=== PATIENT | female | born 1980 | race Caucasian/White ===

== ENCOUNTER 2017-03-29 11:38 | Emergency (ER) | payer SELFPAY ==
[2017-03-29 11:42] VITALS: BP 118/72
[2017-03-29] MEDS ORDERED: NORMAL SALINE 1000 ML 1,000 ML IV ONE (12:42)
[2017-03-29] MEDS ORDERED: KETOROLAC TROMETHAMINE INJ/PF 30 MG/1 ML SDV IV ONE (12:43)
[2017-03-29] MEDS ORDERED: DIPHENHYDRAMINE HCL 50 MG/ML VIAL IV ONE (12:43)
[2017-03-29] MEDS ORDERED: METOCLOPRAMIDE HCL INJ/PF 10 MG/2 ML SDV IV ONE (12:43)
--- NOTE | 2017-03-29 14:02 | ER Document Report ---
ED Headache - General Chief Complaint: Headache Stated Complaint: HEADACHE Time Seen by Provider: 03/29/17 12:34 Notes: 36 yo female c/o "migraine" headache x 3 days. typical headache for pt. pulsatile. + nausea, no vomiting. no fever. no neck pain. usually takes Maxalt, but has not had any meds due to insurance TRAVEL OUTSIDE OF THE [place] IN LAST 30 DAYS: No - HPI Patient complains to provider of: "Migraine" Patient reports: Hx chronic headaches Onset: Other - 3 days Onset was: Gradual Timing: Still present Quality of pain: Throbbing Preceding symptoms: Typical of prior aura(s) Associated symptoms: Nausea/vomiting. denies: Fever, Neck pain, Stiff neck Exacerbated by: Light, Noise, Movement Similar symptoms previously: Yes Recently seen / treated by doctor: No - Related Data Allergies/Adverse Reactions: amoxicillin [Amoxicillin] Allergy (Verified 03/29/17 11:40) Penicillins Allergy (Verified 03/29/17 11:40) Past Medical History - General Information source: Patient - Social History Smoking Status: Current Every Day Smoker Frequency of alcohol use: None Drug Abuse: None Lives with: Family Family History: Reviewed & Not Pertinent Patient has suicidal ideation: No Patient has homicidal ideation: No Neurological Medical History: Reports: Hx Migraine Renal/ Medical History: Denies: Hx Peritoneal Dialysis Musculoskeltal Medical History: Reports Hx Arthritis - rheumatoid arthritis - new dx, Reports Hx Musculoskeletal Deformity, Reports Hx Musculoskeletal Trauma Skin Medical History: Reports Hx MRSA Past Surgical History: Reports: Hx Section - x3, Hx Tonsillectomy - 2005 - Immunizations Hx Diphtheria, Pertussis, Tetanus Vaccination: Yes - 2005 Review of Systems - Review of Systems Constitutional: No symptoms reported EENT: No symptoms reported Cardiovascular: No symptoms reported Respiratory: No symptoms reported Gastrointestinal: No symptoms reported Genitourinary: No symptoms reported Female Genitourinary: No symptoms reported Musculoskeletal: No symptoms reported Skin: No symptoms reported Hematologic/Lymphatic: No symptoms reported Neurological/Psychological: No symptoms reported Physical Exam - Vital signs Vitals: Temp Pulse Resp BP Pulse Ox 98.0 F 90 12 118/72 100 03/29/17 11:41 03/29/17 11:41 03/29/17 11:41 03/29/17 11:41 03/29/17 11:41 Interpretation: Normal - General General appearance: Appears well, Alert - HEENT Head: Normocephalic, Atraumatic Eyes: Normal Pupils: PERRL - Respiratory Respiratory status: No respiratory distress Chest status: Nontender Breath sounds: Normal Chest palpation: Normal - Cardiovascular Rhythm: Regular Heart sounds: Normal auscultation Murmur: No - Abdominal Inspection: Normal Distension: No distension Bowel sounds: Normal Tenderness: Nontender Organomegaly: No organomegaly - Back Back: Normal, Nontender - Extremities General upper extremity: Normal inspection, Nontender, Normal color, Normal ROM , Normal temperature General lower extremity: Normal inspection, Nontender, Normal color, Normal ROM , Normal temperature, Normal weight bearing. No: Leah's sign - Neurological Neuro grossly intact: Yes Cognition: Normal Orientation: AAOx4 Felipe Coma Scale Eye Opening: Spontaneous Felipe Coma Scale Verbal: Oriented Jones Coma Scale Motor: Obeys Commands Felipe Coma Scale Total: 15 Speech: Normal Motor strength normal: LUE, RUE, LLE, RLE Sensory: Normal - Psychological Associated symptoms: Normal affect, Normal mood - Skin Skin Temperature: Warm Skin Moisture: Dry Skin Color: Normal Course - Re-evaluation Re-evalutation: 03/29/17 14:12 pt improved after meds. low risk for acute glaucoma, temporal ateritis, meningitis, stroke, thus I consider discharge home reasonable. pt is neurologically intact. home care, pcm follow up and ED return precautions discussed with patient. pt agreeable and stable for discharge - Vital Signs Vital signs: Temp Pulse Resp BP Pulse Ox 98.0 F 90 12 118/72 100 03/29/17 11:41 03/29/17 11:41 03/29/17 11:41 03/29/17 11:41 03/29/17 11:41 Discharge - Discharge Clinical Impression: Headache Qualifiers: Headache type: unspecified Headache chronicity pattern: acute headache Intractability: not intractable Qualified Code(s): R51 - Headache Condition: Stable Disposition: HOME, SELF-CARE Instructions: Antinausea Medication ([facility]), Use of Diphenhydramine, Headache ( [facility]), Reglan ([facility]), Toradol Injection ([facility]) Additional Instructions: take 1 phenergan +2 benadryl if headache returns rest and hydrate follow up with your primary care for further evaluation and treatment Prescriptions: Promethazine HCl [Phenergan 25 mg Tablet] 25 mg PO Q6H PRN #15 tablet PRN Reason: Forms: Return to Work
== END 2017-03-29 14:10 | disposition left against medical advice (07) ==
LOC: ER 11:38
DX: R51 Headache (principal); R11.0 Nausea; F17.200 Nicotine dependence, unspecified, uncomplicated; Z88.0 Allergy status to penicillin; Z86.14 Personal history of Methicillin resistant Staphylococcus aureus infection
CPT/HCPCS: 99283; 96361; 96374; 96375; J1200; J1885; J2765; J7030

== ENCOUNTER 2017-04-09 17:28 | Emergency (ER) | payer SELFPAY ==
[2017-04-09 17:34] VITALS: BP 141/85
[2017-04-09] MEDS ORDERED: SULFAMETHOXAZOLE/TRIMETHOPRIM 800-160 MG TABLET PO ONE (18:05)
[2017-04-09] MEDS ORDERED: CEPHALEXIN 500 MG CAPSULE PO ONE (18:05)
[2017-04-09] MEDS ORDERED: IBUPROFEN 800 MG TABLET PO ONE (18:05)
--- NOTE | 2017-04-09 18:11 | ER Document Report ---
ED Extremity Problem, Lower - General Chief Complaint: Toe Injury Stated Complaint: TOE PAIN Time Seen by Provider: 04/09/17 17:58 Mode of Arrival: Medic Information source: Patient Notes: 36-year-old female presented to ED for complaint of pain in both big toes for the last 7 days. She denies any injuries or trauma. She states she does a lot of walking today and that she has pain in both toes. She states she thinks she has an ingrown toenail on both toes. She states she has had them in the past. TRAVEL OUTSIDE OF THE [place] IN LAST 30 DAYS: No - HPI Patient complains to provider of: Pain, Swelling Location: Great Toe - Bilateral Occurred: Last week Where: Other - States she done a walk lateral walking today but the pain is been for a week Onset/Duration: Persistent Quality of pain: Sharp, Throbbing Severity: Severe Pain Level: 5 Context: Other - Minimal ingrown toenails both great toes. No pus noted at this time patient states she has been removing the pus herself Recent injury: No Associated symptoms: Painful ambulation Exacerbated by: Movement, Walking Relieved by: Nothing - Related Data Allergies/Adverse Reactions: amoxicillin [Amoxicillin] Allergy (Verified 04/09/17 17:32) Penicillins Allergy (Verified 04/09/17 17:32) Past Medical History - General Information source: Patient - Social History Smoking Status: Current Every Day Smoker Cigarette use (# per day): Yes - 4-6 cigarettes a day Chew tobacco use (# tins/day): No Smoking Education Provided: Yes - 3 minutes Frequency of alcohol use: None Drug Abuse: None Lives with: Family Family History: Malignancy, Thyroid Disfunction. denies: Arthritis, CAD, COPD, CVA, DM, Hyperlipidemia, Hypertension Patient has suicidal ideation: No Patient has homicidal ideation: No - Past Medical History Cardiac Medical History: Reports: None Pulmonary Medical History: Reports: None EENT Medical History: Reports: None Neurological Medical History: Reports: Hx Migraine Endocrine Medical History: Reports: None Renal/ Medical History: Reports: None Malignancy Medical History: Reports: None GI Medical History: Reports: None Musculoskeltal Medical History: Reports Hx Arthritis - rheumatoid arthritis - new dx, Reports Hx Musculoskeletal Deformity, Reports Hx Musculoskeletal Trauma Skin Medical History: Reports Hx Cellulitis, Reports Hx MRSA Psychiatric Medical History: Reports: None Traumatic Medical History: Reports: None Past Surgical History: Reports: Hx Section - x3, Hx Tonsillectomy - 2005, Other - Facial surgery for MRSA 2 - Immunizations Hx Diphtheria, Pertussis, Tetanus Vaccination: Yes - 2006 Review of Systems - Review of Systems Constitutional: No symptoms reported EENT: No symptoms reported Cardiovascular: No symptoms reported Respiratory: No symptoms reported Gastrointestinal: No symptoms reported Genitourinary: No symptoms reported Female Genitourinary: No symptoms reported Musculoskeletal: No symptoms reported Skin: Other - Painful redness around the toenails to both great toe nails. No paronychia noted. No drainage noted. Hematologic/Lymphatic: No symptoms reported Neurological/Psychological: No symptoms reported Physical Exam - Vital signs Vitals: Temp Pulse Resp BP Pulse Ox 97.9 F 97 18 141/85 H 100 04/09/17 17:34 04/09/17 17:34 04/09/17 17:34 04/09/17 17:34 04/09/17 17:34 Interpretation: Normal - General General appearance: Appears well, Alert - HEENT Head: Normocephalic, Atraumatic Eyes: Normal Pupils: PERRL - Respiratory Respiratory status: No respiratory distress Chest status: Nontender Breath sounds: Normal Chest palpation: Normal - Cardiovascular Rhythm: Regular Heart sounds: Normal auscultation Murmur: No - Abdominal Inspection: Normal Distension: No distension Bowel sounds: Normal Tenderness: Nontender Organomegaly: No organomegaly - Back Back: Normal, Nontender - Extremities General upper extremity: Normal inspection, Nontender, Normal color, Normal ROM , Normal temperature General lower extremity: Normal inspection, Nontender, Normal color, Normal ROM , Normal temperature, Normal weight bearing. No: Leah's sign - Neurological Neuro grossly intact: Yes Cognition: Normal Orientation: AAOx4 Felipe Coma Scale Eye Opening: Spontaneous Felipe Coma Scale Verbal: Oriented [place] Coma Scale Motor: Obeys Commands Felipe Coma Scale Total: 15 Speech: Normal Motor strength normal: LUE, RUE, LLE, RLE Sensory: Normal - Psychological Associated symptoms: Normal affect, Normal mood - Skin Skin Temperature: Warm Skin Moisture: Dry Skin Color: Normal Location of irregularity: Extremities - Cellulitis to bilateral great toes around the nails. No paronychia noted. No drainage no pus. Irregularity with: Swelling, Tenderness Course - Re-evaluation Re-evalutation: 12/24/17 18:40 Patient treated in the a.m. emergency room with Bactrim and Keflex and ibuprofen. Patient was sent home with prescriptions for Keflex and Bactrim. Patient to follow-up with a fitness instructor. - Vital Signs Vital signs: Temp Pulse Resp BP Pulse Ox 97.9 F 97 18 141/85 H 100 04/09/17 17:34 04/09/17 17:34 04/09/17 17:34 04/09/17 17:34 04/09/17 17:34 Discharge - Discharge Clinical Impression: ingrown toenails bilateral great toe HTN (hypertension) Qualifiers: Hypertension type: unspecified Qualified Code(s): I10 - Essential (primary) hypertension Condition: Stable Disposition: HOME, SELF-CARE Additional Instructions: Ingrown Nail You have an ingrown nail. An ingrown nail develops when the tissues near the nail are pushed up over the nail. Irritation develops and infection follows. An ingrown nail can result from poorly fitting shoes, improper cutting of the nail, or minor injuries. Once the tissues at the edge of the nail swell, the problem can become chronic. Emergency treatment is usually removal of the portion of the nail that has become ingrown. This is followed by hot soaks three to four times a day. Antibiotics may be necessary if infection is present. After the toe heals, make certain there is no pressure on the area, either from shoes or another toe. Trim the toenails straight across, not curved back into the corners. If ingrown nails recur, an operation to remove excess tissue near the nail, or narrowing of the nail, may be necessary. Call the doctor or return if swelling increases, or red streaks, swelling, or swollen glands are found. SOAP CLEANSING: Gently wash the wound daily using a mild soap (like Ivory, Phisoderm, Neutrogena). Use warm water, rubbing gently until all debris, ooze, and crusting have been washed from the wound. Allow to dry briefly (about 10 minutes) after cleaning. Repeat this cleansing at least three times a day for the first two days and then once or twice a day. ANTIBIOTIC OINTMENT PROTECTION: Your wounds are such that dressing them is not practical or optional. After cleansing, you should apply a thin coating of antibiotic ointment ( Bacitracin, not Neosporin) to the wounds at least three times daily. This lessens infection risk, and may decrease the amount of scarring. Use a q-tip or dull butter knife, not your finger, to apply this ointment. Any debris or ooze which builds up in the ointment should be gently rubbed off with a sterile gauze pad. Harder crusting may need to be gently scrubbed off with a clean wash cloth with soap and warm water, perhaps applying a warm, wet wash cloth to the wound for ten minutes first. Development of redness, severe itching, or blistering may mean allergy to the ointment. See the doctor. CEPHALEXIN: The antibiotic you've been prescribed is a member of the cephalosporin class. This type of antibiotic covers a wide variety of infections, including those of the skin, lungs, and urinary tract. It's useful for staph infections. This antibiotic is slightly similar to the penicillin family. In rare cases , a person who is allergic to penicillin will also be allergic to this medication. If you have had a severe allergic reaction to penicillin, and have not taken this antibiotic since that time, notify your doctor. Antibiotics which cover many germs ("broad spectrum" antibiotics) are more likely to cause diarrhea or "yeast" infections. Women prone to vaginal yeast problems may suffer an attack after taking this antibiotic. In infants, oral thrush (white spots "stuck" on the cheek) or yeast diaper rash may result. See your doctor if these problems occur. Call at once if you develop itching, hives , shortness of breath, or lightheadedness. TRIMETHOPRIM-SULFA: You have been given a prescription for trimethoprim-sulfa (TMS, Septra, Bactrim). This is a combination antibiotic of the sulfa class, often used for urinary tract infections, middle ear infections, bronchitis, shigella intestinal infection, and Pneumocystis pneumonia. TMS is usually well-tolerated. Occasional side effects include nausea and decreased appetite. Septra is not recommended for infants less than two months of age. Do not take this medication if you have experienced severe side effects or allergy to sulfa medicine. You should stop this medicine at once and contact your physician if you develop any rash, joint pain, shortness of breath, bruising, or jaundice ( yellow color in the skin), or if you develop any other new or unusual symptoms. FOLLOW-UP CARE: If you have been referred to a physician for follow-up care, call the physician s office for an appointment as you were instructed or within the next two days. If you experience worsening or a significant change in your symptoms, notify the physician immediately or return to the Emergency Department at any time for re-evaluation. Prescriptions: Cephalexin Monohydrate [Keflex 500 mg Capsule] 500 mg PO Q6H 5 Days capsule Sulfamethoxazole/Trimethoprim [Bactrim Ds Tablet] 1 each PO BID #20 tablet Forms: Elevated Blood Pressure, Smoking Cessation Education Referrals: SARAH KOCH DPM [ACTIVE STAFF] - Follow up as needed
== END 2017-04-09 18:10 | disposition home or self-care (01) ==
LOC: ER 17:28
DX: L60.0 Ingrowing nail (principal); I10 Essential (primary) hypertension; F17.210 Nicotine dependence, cigarettes, uncomplicated
CPT/HCPCS: 99283

== ENCOUNTER 2017-04-10 13:25 | Emergency (ER) | payer SELFPAY ==
[2017-04-10] MEDS ORDERED: KETOROLAC TROMETHAMINE INJ/PF 30 MG/1 ML SDV IV ONE (14:15)
[2017-04-10] MEDS ORDERED: PROCHLORPERAZINE EDISYLATE INJ 10 MG/2 ML VIAL IV ONE (14:15)
[2017-04-10] MEDS ORDERED: NORMAL SALINE 1000 ML 1,000 ML IV ONE (14:15)
[2017-04-10] MEDS ORDERED: DIPHENHYDRAMINE HCL 50 MG/ML VIAL IV ONE (14:15)
--- NOTE | 2017-04-10 14:19 | ER Document Report ---
HPI - HPI Patient complains to provider of: migraine Onset: Yesterday Onset/Duration: Waxing and waning Quality of pain: Throbbing Pain Level: 4 Context: Patient presents complaining of global headache pain that started yesterday. Patient states headache pain has been off and on and did improve some after taking Maxalt yesterday. Patient states she ran out of her Maxalt. Patient does report nausea and vomiting 4 episodes today. Patient denies any fever. Patient does report some right ear discomfort and sinus congestion. Patient states headache is typical of migraines that she usually has. Associated Symptoms: Earache, Headache, Nausea, Vomiting, Rhinnorhea. denies: Nonproductive cough, Fever Exacerbated by: Other - light Relieved by: Denies Similar symptoms previously: Yes Recently seen / treated by doctor: Yes - ROS ROS below otherwise negative: Yes Systems Reviewed and Negative: Yes All other systems reviewed and negative - CONSTITUTIONAL Constitutional: DENIES: Fever, Chills - EENT EENT: REPORTS: Nasal Drainage-Clear, Congestion - NEURO Neurology: REPORTS: Headache. DENIES: Weakness, Vision blurred, Dizzinesss / Vertigo - GASTROINTESTINAL Gastrointestinal: REPORTS: Nausea, Patient vomiting. DENIES: Abdominal Pain - REPRODUCTIVE Reproductive: DENIES: : - MUSCULOSKELETAL Musculoskeletal: DENIES: Back Pain - DERM Skin Color: Normal Skin Problems: None Past Medical History - General Information source: Patient - Social History Smoking Status: Smoker,Current Status Unk Chew tobacco use (# tins/day): No Frequency of alcohol use: None Drug Abuse: None Family History: Malignancy, Thyroid Disfunction. denies: Arthritis, CAD, COPD, CVA, DM, Hyperlipidemia, Hypertension Patient has suicidal ideation: No Patient has homicidal ideation: No Neurological Medical History: Reports: Hx Migraine Renal/ Medical History: Denies: Hx Peritoneal Dialysis Musculoskeltal Medical History: Reports Hx Arthritis - rheumatoid arthritis - new dx, Reports Hx Musculoskeletal Deformity, Reports Hx Musculoskeletal Trauma Skin Medical History: Reports Hx Cellulitis, Reports Hx MRSA Past Surgical History: Reports: Hx Section - x3, Hx Tonsillectomy - 2005, Other - Facial surgery for MRSA 2 - Immunizations Hx Diphtheria, Pertussis, Tetanus Vaccination: Yes - 2006 Vertical Provider Document - CONSTITUTIONAL Agree With Documented VS: Yes Exam Limitations: No Limitations General Appearance: WD/WN, No Apparent Distress Notes: PHYSICAL EXAMINATION: GENERAL: Well-appearing and in no acute distress. HEAD: Atraumatic, normocephalic. EYES: Pupils equal round and reactive to light, extraocular movements intact, sclera anicteric, conjunctiva are normal. ENT: Mild nasal congestion with clear rhinorrhea, oropharynx clear without exudates. Moist mucous membranes. NECK: Normal range of motion, supple without lymphadenopathy, no meningismus LUNGS: CTAB and equal. No wheezes rales or rhonchi. HEART: Regular rate and rhythm without murmurs EXTREMITIES: Normal range of motion, no pitting edema. No cyanosis. BACK: No midline tenderness, no step-off or deformity. NEUROLOGICAL: Cranial nerves grossly intact. Normal speech. Normal gait. PSYCH: Normal mood, normal affect. SKIN: Warm, Dry, normal turgor, no rashes or lesions noted - INFECTION CONTROL TRAVEL OUTSIDE OF THE [place] IN LAST 30 DAYS: No - RESPIRATORY O2 Sat by Pulse Oximetry: 100 Course - Re-evaluation Re-evalutation: 04/10/17 15:34 Patient reports that headache pain has decreased and is manageable. Patient is ready to be discharged home. The patient presents with headache without signs of [employer]LECT[employer]ER bleed, stroke, infection, or other serious etiology. The patient is neurologically intact. Given the extremely low risk of these diagnoses further testing and evaluation for these possibilities does not appear to be indicated at this time. The patient has been instructed to return if the symptoms worsen or change in any way. - Vital Signs Vital signs: Temp Pulse Resp BP Pulse Ox 97.8 F 101 H 18 138/80 H 100 04/10/17 13:42 04/10/17 13:42 04/10/17 13:42 04/10/17 13:42 04/10/17 13:42 Discharge - Discharge Clinical Impression: Headache Qualifiers: Headache type: unspecified Headache chronicity pattern: episodic headache Intractability: not intractable Qualified Code(s): R51 - Headache Condition: Stable Disposition: HOME, SELF-CARE Instructions: Intravenous Compazine for Headaches ([facility]), Use of Diphenhydramine , Headache ([facility]), Toradol Injection ([facility]), Antinausea Medication ([facility]) Additional Instructions: Return immediately for any new or worsening symptoms Followup with your primary care provider, call tomorrow to make a followup appointment Prescriptions: Promethazine HCl [Phenergan 25 mg Tablet] 25 mg PO Q6H PRN #8 tablet PRN Reason: Referrals: SHILO DAO MD [Primary Care Provider] - Follow up tomorrow
[2017-04-10 15:44] VITALS: BP 128/70
== END 2017-04-10 15:45 | disposition home or self-care (01) ==
LOC: ER 13:25
DX: G43.909 Migraine, unspecified, not intractable, without status migrainosus (principal); R11.2 Nausea with vomiting, unspecified; F17.200 Nicotine dependence, unspecified, uncomplicated; Z86.14 Personal history of Methicillin resistant Staphylococcus aureus infection
CPT/HCPCS: 99283; 96374; 96375; J1200; J1885; J0780; J7030

== ENCOUNTER 2017-04-16 17:07 | Emergency (ER) | payer SELFPAY ==
[2017-04-16 18:06] VITALS: BP 148/102
[2017-04-16] MEDS ORDERED: KETOROLAC TROMETHAMINE 60 MG/2 ML SDV IM ONE (19:07)
--- NOTE | 2017-04-16 19:09 | ER Document Report ---
ED Medical Screen (RME) - General Chief Complaint: Lower Abdominal Pain Stated Complaint: VAGINAL FOREIGN BODY Time Seen by Provider: 04/16/17 19:05 Notes: This 36-year-old female patient reports that she has had a tampon stuck for the past 2 days. Today she is having severe pain in her right abdomen and across her lower abdomen. She states she has been unable to urinate since 1 PM today. She is not on any medications. She is on her. At this time. She has had her tubes tied in the past. She is trying to maintain a position and crying. Brief exam shows a soft abdomen, some tenderness in the right lower quadrant suprapubic region less tender in the left lower quadrant. TRAVEL OUTSIDE OF THE [place] IN LAST 30 DAYS: No - Related Data Allergies/Adverse Reactions: amoxicillin [Amoxicillin] Allergy (Verified 04/16/17 17:09) Penicillins Allergy (Verified 04/16/17 17:09) Home Medications: Current Home Medications No Home Medications 04/16/17 [History] Past Medical History - Social History Frequency of alcohol use: Occasional Drug Abuse: None Neurological Medical History: Reports: Hx Migraine Renal/ Medical History: Denies: Hx Peritoneal Dialysis Musculoskeltal Medical History: Reports Hx Arthritis - rheumatoid arthritis - new dx, Reports Hx Musculoskeletal Deformity, Reports Hx Musculoskeletal Trauma Skin Medical History: Reports Hx Cellulitis, Reports Hx MRSA Past Surgical History: Reports: Hx Section - x3, Hx Tonsillectomy - 2005, Other - Facial surgery for MRSA 2 - Immunizations Hx Diphtheria, Pertussis, Tetanus Vaccination: Yes - 2006 Physical Exam - Vital signs Vitals: Temp Pulse Resp BP Pulse Ox 98.7 F 113 H 20 148/102 H 100 04/16/17 18:05 04/16/17 18:05 04/16/17 18:05 04/16/17 18:05 04/16/17 18:05 Course - Vital Signs Vital signs: Temp Pulse Resp BP Pulse Ox 98.7 F 113 H 20 148/102 H 100 04/16/17 18:05 04/16/17 18:05 04/16/17 18:05 04/16/17 18:05 04/16/17 18:05
--- NOTE | 2017-04-16 19:51 | ER Document Report ---
ED GI/ - General Chief Complaint: Lower Abdominal Pain Stated Complaint: VAGINAL FOREIGN BODY Time Seen by Provider: 04/16/17 19:05 Mode of Arrival: Ambulatory Information source: Patient TRAVEL OUTSIDE OF THE [place] IN LAST 30 DAYS: No - HPI Patient complains to provider of: Urinary retention, Vaginal pain. No: Onset: This morning Timing/Duration: Gradual Quality of pain: Pressure Severity at maximum: Moderate Severity in ED: Moderate Context: Other - POSS. RETAINED TAMPON Location: Vaginal Vaginal bleeding (Compared to normal period): None Menstrual period history: Irregular Associated symptoms: Nausea, Urinary retention. denies: Chills, Fever, Vomiting Relieved by: Denies Similar symptoms previously: No Recently seen / treated by doctor: No - Related Data Allergies/Adverse Reactions: amoxicillin [Amoxicillin] Allergy (Verified 04/16/17 17:09) Penicillins Allergy (Verified 04/16/17 17:09) Past Medical History - Social History Smoking Status: Current Every Day Smoker Cigarette use (# per day): Yes Frequency of alcohol use: Occasional Drug Abuse: None Lives with: Family Family History: Malignancy, Thyroid Disfunction. denies: Arthritis, CAD, COPD, CVA, DM, Hyperlipidemia, Hypertension Patient has suicidal ideation: No Patient has homicidal ideation: No - Past Medical History Cardiac Medical History: Reports: None Pulmonary Medical History: Reports: None EENT Medical History: Reports: None Neurological Medical History: Reports: Hx Migraine Endocrine Medical History: Reports: None Renal/ Medical History: Reports: None. Denies: Hx Peritoneal Dialysis Malignancy Medical History: Reports: None GI Medical History: Reports: None Musculoskeltal Medical History: Reports Hx Arthritis - rheumatoid arthritis - new dx, Reports Hx Musculoskeletal Deformity, Reports Hx Musculoskeletal Trauma Skin Medical History: Reports Hx Cellulitis, Reports Hx MRSA Psychiatric Medical History: Reports: None Past Surgical History: Reports: Hx Section - x3, Hx Tonsillectomy - 2005, Other - Facial surgery for MRSA 2 - Immunizations Hx Diphtheria, Pertussis, Tetanus Vaccination: Yes - 2006 Review of Systems - Review of Systems Constitutional: No symptoms reported EENT: No symptoms reported Cardiovascular: No symptoms reported Respiratory: No symptoms reported Gastrointestinal: No symptoms reported Genitourinary: See HPI Female Genitourinary: See HPI Musculoskeletal: No symptoms reported Skin: No symptoms reported Neurological/Psychological: No symptoms reported Physical Exam - Vital signs Vitals: Temp Pulse Resp BP Pulse Ox 98.7 F 113 H 20 148/102 H 100 04/16/17 18:05 04/16/17 18:05 04/16/17 18:05 04/16/17 18:05 04/16/17 18:05 Interpretation: Hypertensive, Tachycardic. No: Tachypneic, Febrile - General General appearance: Appears well, Alert, Anxious In distress: None - HEENT Head: Normocephalic Eyes: Normal Conjunctiva: Normal Ears: Normal Nasal: Normal Mouth/Lips: Normal Mucous membranes: Normal Pharynx: Normal Neck: Normal - Respiratory Respiratory status: No respiratory distress - Cardiovascular Rhythm: Regular - Abdominal Inspection: Normal Distension: No distension - Genitourinary External exam: Normal Speculum exam: Normal, Cervix closed, Other - NO FOREIGN MATERIAL SEEN Vaginal bleeding: Mild - SLIGHT Bimanuel exam: Cervical motion tender - Extremities General upper extremity: Normal inspection General lower extremity: Normal inspection - Neurological Neuro grossly intact: Yes Cognition: Normal Orientation: AAOx4 - Psychological Associated symptoms: Anxious - Skin Skin Temperature: Warm Skin Moisture: Dry Skin Color: Normal Skin Turgor: Elastic Course - Vital Signs Vital signs: Temp Pulse Resp BP Pulse Ox 98.7 F 113 H 20 148/102 H 100 04/16/17 18:05 04/16/17 18:05 04/16/17 18:05 04/16/17 18:05 04/16/17 18:05 - Laboratory Result Diagrams: 04/16/17 19:44 04/16/17 19:44 Laboratory results interpreted by me: 04/16/17 04/16/17 19:44 19:44 RDW 15.0 H Chloride 111 H Discharge - Discharge Clinical Impression: Bacterial vaginosis, Acute urinary retention Condition: Stable Disposition: ELOPED Instructions: Metronidazole ([facility]), Vaginosis, Bacterial ([facility]) Additional Instructions: REST, DRINK PLENTY OF FLUIDS. MEDS DIRECTED. FOLLOW UP WITH YOUR PRIMARY CARE PROVIDER OR RETURN TO E.R. IF NOT IMPROVING IN 24-48 HOURS. Prescriptions: Metronidazole 500 mg PO BID #14 tablet Referrals: SHILO DAO MD [Primary Care Provider] - Follow up as needed
[2017-04-16 19:58] LABS: ABSOLUTE LYMPHOCYTES (AUTO) 3.4 10^3/uL (0.5-4.7); ABSOLUTE MONOCYTES (AUTO) 0.3 10^3/uL (0.1-1.4); ABSOLUTE NEUT (AUTO) 5.6 10^3/uL (1.7-8.2); BASOPHILS % (AUTO) 0.4 % (0-2); EOSINOPHILS % (AUTO) 0.5 % (0-6); HEMATOCRIT 41.2 % (36.0-47.0); HEMOGLOBIN 13.8 g/dL (12.0-15.5); LYMPHOCYTES % (AUTO) 35.7 % (13-45); MEAN CORPUSCULAR HEMOGLOBIN 28.5 pg (27.0-33.4); MEAN CORPUSCULAR HGB CONC 33.4 g/dL (32.0-36.0); MEAN CORPUSCULAR VOLUME 85 fl (80-97); MONOCYTES % (AUTO) 3.6 % (3-13); PLATELET COUNT 285 10^3/uL (150-450); RED BLOOD COUNT 4.83 10^6/uL (3.72-5.28); SEGMENTED NEUTROPHILS % (AUTO) 59.8 % (42-78); TOTAL CELLS COUNTED % (AUTO) 100 %; WHITE BLOOD COUNT 9.4 10^3/uL (4.0-10.5)
[2017-04-16 20:17] LABS: APPEARANCE,URINE CLEAR; BILIRUBIN,URINE NEGATIVE (NEGATIVE); COLOR,URINE COLORLESS; GLUCOSE, URINE NEGATIVE (NEGATIVE); KETONES,URINE NEGATIVE (NEGATIVE); LEUKOCYTE ESTERASE,URINE NEGATIVE (NEGATIVE); NITRITE,URINE NEGATIVE (NEGATIVE); PROTEIN,URINE NEGATIVE (NEGATIVE); URINE SPECIFIC GRAVITY 1.002; UROBILINOGEN,URINE NEGATIVE mg/dL (<2.0)
[2017-04-16 20:19] LABS: ALANINE AMINOTRANSFERASE 26 U/L (9-52); ALBUMIN 3.8 g/dL (3.5-5.0); ALKALINE PHOSPHATASE 86 U/L (38-126); ANION GAP 8 (5-19); ASPARTATE AMINO TRANSFERASE 20 U/L (14-36); BILIRUBIN,DIRECT 0.2 mg/dL (0.0-0.4); BILIRUBIN,TOTAL 0.5 mg/dL (0.2-1.3); BLOOD UREA NITROGEN 7 mg/dL (7-20); CALCIUM 9.4 mg/dL (8.4-10.2); CARBON DIOXIDE 25 mmol/L (22-30); CHLORIDE 111 mmol/L (98-107); GLUCOSE 93 mg/dL (75-110); POTASSIUM 3.8 mmol/L (3.6-5.0); TOTAL PROTEIN 6.6 g/dL (6.3-8.2)
[2017-04-16] MEDS ORDERED: ONDANSETRON 4 MG TAB.RAPDIS PO ONE (20:23)
[2017-04-16] MEDS ORDERED: HYDROCODONE/ACETAMINOPHEN 5-325 MG TABLET PO ONE (20:23)
[2017-04-16 20:26] LABS: T.VAGINALIS (WET MOUNT) NO TRICHOMONAS SEEN; YEAST (WET MOUNT) NO YEAST SEEN
[2017-04-16 20:27] LABS: BACTERIA (WET MOUNT) 4+ BACTERIA SEEN; EPITHELIALS (WET MOUNT) 3+ EPITHELIALS SEEN; RBCS (WET MOUNT) 3+ RBCS SEEN; WBCS (WET MOUNT) 2+ WBCS SEEN
[2017-04-16] MEDS ORDERED: METRONIDAZOLE 500 MG TABLET PO ONE (20:59)
[2017-04-16] MEDS ORDERED: HYDROCODONE/ACETAMINOPHEN 5-325 MG (6 TAB/ER DISP) PO PRN (21:06)
[2017-04-16 21:59] LABS: CHLAM PCR NOT DETECTED (NOT DETECT); GON PCR NOT DETECTED (NOT DETECT)
== END 2017-04-16 21:30 | disposition left against medical advice (07) ==
LOC: ER 17:07
DX: N76.0 Acute vaginitis (principal); B96.89 Other specified bacterial agents as the cause of diseases classified elsewhere; R33.9 Retention of urine, unspecified; R10.30 Lower abdominal pain, unspecified; F17.210 Nicotine dependence, cigarettes, uncomplicated
CPT/HCPCS: 99284; 51701; 36415; 87210; 85025; 80053; 81001; 87491; 87591; J1885; S0119

== ENCOUNTER 2017-08-29 21:38 | Emergency (ER) | payer SELFPAY ==
[2017-08-29 21:57] VITALS: BP 108/65
--- NOTE | 2017-08-29 23:19 | RADIOLOGY REPORT (SQ) ---
EXAM DESCRIPTION: CHEST 2 VIEWS COMPLETED DATE/TIME: 08/29/2017 10:25 pm REASON FOR STUDY: cough COMPARISON: None. EXAM PARAMETERS: NUMBER OF VIEWS: two views TECHNIQUE: Digital Frontal and Lateral radiographic views of the chest acquired. RADIATION DOSE: NA LIMITATIONS: none FINDINGS: LUNGS AND PLEURA: No opacities, masses or pneumothorax. No pleural effusion. MEDIASTINUM AND HILAR STRUCTURES: No masses or contour abnormalities. HEART AND VASCULAR STRUCTURES: Heart normal size. No evidence for failure. BONES: No acute findings. HARDWARE: None in the chest. OTHER: No other significant finding. IMPRESSION: NO ACUTE RADIOGRAPHIC FINDING IN THE CHEST. TECHNICAL DOCUMENTATION: JOB ID: [id number] [place]-72 2010 [employer]- All Rights Reserved Reading location - IP/workstation name: [email or web address] Access
[2017-08-29] MEDS ORDERED: BENZONATATE 100 MG CAPSULE PO ONE (23:26)
--- NOTE | 2017-08-29 23:32 | ER Document Report ---
HPI - HPI Pain Level: 4 Notes: Patient is a 37-year-old female with no significant past medical history who presents to the ED complaining of possible visits to her back when she has a history of and a dry nonproductive cough 3-4 days. Patient states that she does have soreness when she coughs as well, but is not there constantly. She is eating and drinking without difficulties. She is urinating normally and having normal bowel movements. She has not noticed any abscess or purulent discharge. Denies any headache, fever, neck pain, URI, sore throat, chest pain , palpitations, syncope, shortness of breath, wheeze, dyspnea, abdominal pain, nausea/vomiting/diarrhea, urinary retention, dysuria, hematuria, or rash. + smoker. No IV drugs, prolonged immobilization, prev dvt/PE, recent surgery/ trauma, hormone use. - ROS Systems Reviewed and Negative: Yes All other systems reviewed and negative - CONSTITUTIONAL Constitutional: DENIES: Fever, Chills - REPRODUCTIVE Reproductive: DENIES: : Past Medical History - Social History Smoking Status: Current Some Day Smoker Family History: Malignancy, Thyroid Disfunction. denies: Arthritis, CAD, COPD, CVA, DM, Hyperlipidemia, Hypertension Patient has suicidal ideation: No Patient has homicidal ideation: No Neurological Medical History: Reports: Hx Migraine Renal/ Medical History: Denies: Hx Peritoneal Dialysis Musculoskeltal Medical History: Reports Hx Arthritis - rheumatoid arthritis - new dx, Reports Hx Musculoskeletal Deformity, Reports Hx Musculoskeletal Trauma Skin Medical History: Reports Hx Cellulitis, Reports Hx MRSA Past Surgical History: Reports: Hx Section - x3, Hx Tonsillectomy - 2005, Other - Facial surgery for MRSA 2 - Immunizations Hx Diphtheria, Pertussis, Tetanus Vaccination: Yes - 2006 Vertical Provider Document - CONSTITUTIONAL Agree With Documented VS: Yes Notes: PHYSICAL EXAMINATION: GENERAL: Well-appearing, well-nourished and in no acute distress. HEAD: Atraumatic, normocephalic. EYES: Pupils equal round and reactive to light, extraocular movements intact, sclera anicteric, conjunctiva are normal. ENT: Nares patent and without discharge. oropharynx clear without exudates. No tonsilar hypertrophy or erythema. Moist mucous membranes. NECK: Normal range of motion, supple without lymphadenopathy LUNGS: Breath sounds clear to auscultation bilaterally and equal. No wheezes rales or rhonchi. HEART: Regular rate and rhythm without murmurs, rubs, gallops. ABDOMEN: Soft, nontender, nondistended abdomen. No guarding, no rebound. No masses appreciated. Normal bowel sounds present. No CVA tenderness bilaterally. Musculoskeletal: FROM to passive/active. Strength 5+/5. Leah neg. Extremities: No cyanosis, clubbing, or edema b/l. Peripheral pulses 2+. Capillary refill less than 3 seconds. NEUROLOGICAL: Cranial nerves grossly intact. Normal speech, normal gait. PSYCH: Normal mood, normal affect. SKIN: small erythemic maculopapular lesions, multiple, to her upper back. No abscess, induration, streaks, or discharge. - INFECTION CONTROL TRAVEL OUTSIDE OF THE [place] IN LAST 30 DAYS: No Course - Re-evaluation Re-evalutation: 08/29/17 23:31 Patient is an afebrile, well-hydrated, 37-year-old female who presents to the ED with acute bronchitis, suspect viral. Vitals are acceptable. PE is otherwise unremarkable. Patient does have some acne appearing lesions to her upper back which do not warrant I&D at this time. Chest x-ray was unremarkable for any acute pathology. She is tolerating p.o. without difficulties. She has no significant tachycardia, tachypnea, or hypoxia. PERC negative. No other labs or imaging warranted at this time based on H&P. Low suspicion for any pneumothorax, dissection, respiratory compromise, severe dehydration, sepsis, meningitis, or other systemic emergent condition at this time. Patient is aware that her condition can change from initial presentation and she needs to monitor symptoms closely and seek medical attention for any acute changes. Tessalon Perles given p.o. today. I will send her home with prescription for Tessalon Perles. Recommend conservative measures for symptoms. Recheck with your PCM in 3-5 days. Return to the ED with any worsening/concerning symptoms otherwise as reviewed in discharge. Patient is in agreement. - Vital Signs Vital signs: Temp Pulse Resp BP Pulse Ox 98.4 F 80 18 108/65 97 08/29/17 21:56 08/29/17 21:56 08/29/17 21:56 08/29/17 21:56 08/29/17 21:56 Discharge - Discharge Clinical Impression: Acute bronchitis Qualifiers: Bronchitis organism: unspecified organism Qualified Code(s): J20.9 - Acute bronchitis, unspecified Condition: Stable Disposition: HOME, SELF-CARE Instructions: Bronchitis ([facility]) Additional Instructions: Maintain adequate fluid intake Take meds as directed tylenol/ibuprofen as needed over the counter cold medication as needed for symptoms Humidified air may help Wash your hands regularly Wear a mask when coughing Triple antibiotic ointment on the skin daily Soap and water rinses daily F/u: with your PCM in 3-5 days for a recheck Return to the ED with any fever, worsening pain, chest pain, palpitations, syncope, worsening GHOTRA, neck pain/stiffness, shortness of breath, wheezing, drooling, trouble swallowing/breathing, abdominal pain, n/v/d, rash, red streaks , abscess, purulent discharge, or worsening/concerning symptoms otherwise. Prescriptions: Benzonatate [Tessalon Perle 100 mg Capsule] 100 mg PO Q8HP PRN #15 cap PRN Reason: Forms: Smoking Cessation Education Referrals: [facility] [Provider Group] - Follow up in 3-5 days
== END 2017-08-30 00:08 | disposition home or self-care (01) ==
LOC: ER 21:38
DX: J20.9 Acute bronchitis, unspecified (principal); F17.200 Nicotine dependence, unspecified, uncomplicated; Z86.14 Personal history of Methicillin resistant Staphylococcus aureus infection
CPT/HCPCS: 71046; 99283

== ENCOUNTER 2017-11-29 00:29 | Emergency (ER) | payer SELFPAY ==
[2017-11-29] MEDS ORDERED: NORMAL SALINE 1000 ML 1,000 ML IV ONE (02:53)
--- NOTE | 2017-11-29 02:54 | ER Document Report ---
ED General - General Chief Complaint: Vaginal Bleeding Stated Complaint: ABDOMINAL PAIN Time Seen by Provider: 11/29/17 02:30 Notes: Patient is a 37-year-old female comes emergency department for chief complaint of heavy vaginal bleeding for the past 3 days, she states she has started to get lightheaded, she states that she thinks she is but this has not been verified with an official test. She states she also thinks she passed some tissue. She denies fever, passing out, she reports abdominal bloating and swelling with generalized pain but no specific areas of pain. She reports history of tubal ligation, ectopic pregnancies, , tonsillectomy, denies any daily medications, denies any other medical history. She smokes, denies alcohol or recreational drugs. TRAVEL OUTSIDE OF THE [place] IN LAST 30 DAYS: No - Related Data Allergies/Adverse Reactions: amoxicillin [Amoxicillin] Allergy (Verified 04/16/17 17:09) Penicillins Allergy (Verified 04/16/17 17:09) Past Medical History - General Information source: Patient - Social History Smoking Status: Never Smoker Frequency of alcohol use: Occasional Lives with: Spouse/Significant other Family History: Malignancy, Thyroid Disfunction. denies: Arthritis, CAD, COPD, CVA, DM, Hyperlipidemia, Hypertension Neurological Medical History: Reports: Hx Migraine Renal/ Medical History: Denies: Hx Peritoneal Dialysis Musculoskeletal Medical History: Reports Hx Arthritis - rheumatoid arthritis - new dx, Reports Hx Musculoskeletal Deformity, Reports Hx Musculoskeletal Trauma Skin Medical History: Reports Hx Cellulitis, Reports Hx MRSA Past Surgical History: Reports: Hx Section - x3, Hx Tonsillectomy - 2005, Other - Facial surgery for MRSA 2 - Immunizations Hx Diphtheria, Pertussis, Tetanus Vaccination: Yes - 2006 Review of Systems - Review of Systems Constitutional: No symptoms reported EENT: No symptoms reported Cardiovascular: No symptoms reported Respiratory: No symptoms reported Gastrointestinal: See HPI Genitourinary: See HPI Female Genitourinary: See HPI Musculoskeletal: No symptoms reported Skin: No symptoms reported Hematologic/Lymphatic: No symptoms reported Neurological/Psychological: No symptoms reported Physical Exam - Vital signs Vitals: Temp Pulse Resp BP Pulse Ox 97.8 F 78 18 97/46 L 99 11/29/17 00:35 11/29/17 00:35 11/29/17 00:35 11/29/17 00:35 11/29/17 00:35 - Notes Notes: GENERAL: Alert, interacts well. No acute distress. HEAD: Normocephalic, atraumatic. EYES: Pupils equal, round, and reactive to light. Extraocular movements intact. ENT: Oral mucosa moist, tongue midline. NECK: Full range of motion. Supple. Trachea midline. LUNGS: Clear to auscultation bilaterally, no wheezes, rales, or rhonchi. No respiratory distress. HEART: Regular rate and rhythm. No murmur ABDOMEN: Generalized lower abdominal tenderness. No guarding. Bowel sounds present in all 4 quadrants. GENITOURINARY: Some slight vaginal bleeding, no heavy bleeding, small amount of discharge, no other concerning abnormalities. Julissa PCT present during examination. EXTREMITIES: Moves all 4 extremities spontaneously. No edema, normal radial and dorsalis pedis pulses bilaterally. No cyanosis. BACK: no cervical, thoracic, lumbar midline tenderness. No saddle anesthesia, normal distal neurovascular exam. NEUROLOGICAL: Alert and oriented x3. Normal speech. [cranial nerves II through XII grossly intact]. PSYCH: Normal affect, normal mood. SKIN: Warm, dry, normal turgor. No rashes or lesions noted. Course - Re-evaluation Re-evalutation: Patient has generalized lower abdominal tenderness. Blood pressure is borderline, patient states she always "runs low at about 100", this improved with IV fluids. Patient was given a small amount of fentanyl and Toradol. No tachycardia, no fever. Pelvic examination showing minimal vaginal bleeding, small amount of discharge, no cervical motion tenderness or concerning findings otherwise. CBC unremarkable without leukocytosis or anemia, chemistry generally unremarkable, wet mount is positive for trichomonas, gonorrhea and chlamydia are negative. Ultrasound with no acute findings. Patient finally was able to provide a urine, after this unfortunately lab was unable to locate it after we sent it, appears to be lost. Discussed with patient. Patient states that she actually feels some discomfort with urination and think she has a urinary tract infection. She wants to be covered for this and go home. Given Diego Juarez, discussed follow-up with [facility] for dysfunctional uterine bleeding, discussed return precautions, patient and significant other state understanding and agreement. - Vital Signs Vital signs: Temp Pulse Resp BP Pulse Ox 97.8 F 78 18 97/46 L 99 11/29/17 00:35 11/29/17 00:35 11/29/17 00:35 11/29/17 00:35 11/29/17 00:35 - Laboratory Result Diagrams: 11/29/17 02:40 11/29/17 02:40 Laboratory results interpreted by me: 11/29/17 11/29/17 02:40 02:40 RDW 15.8 H Lymphocytes % 45.9 H Est GFR (Non-Af Amer) 59 L Glucose 63 L Discharge - Discharge Clinical Impression: Pelvic pain, Vaginal bleeding, Dysuria Condition: Stable Disposition: HOME, SELF-CARE Additional Instructions: Your ultrasound does not show any concerning findings. Your blood levels are not concerning the liver. Your examination and workup are consistent with a trichomonas infection, this could be contributing to your irregular bleeding and pain. Your partner needs to be treated as well. Avoid sexual intercourse for 1 week. Take Flagyl as prescribed to completion, take Phenergan if needed for nausea, follow-up with [facility] referral for additional evaluation and management. Because of your discomfort with urination we are covering with Keflex for possible urinary tract infection. Return if you worsen including vomiting, fever, severe abdominal pain, passing out or any other concerning or worsening symptoms. Prescriptions: Cephalexin Monohydrate [Keflex 500 mg Capsule] 500 mg PO BID #10 capsule Metronidazole [Flagyl 500 mg Tablet] 500 mg PO BID #14 tablet Forms: Treatment of Relative/Child Referrals: [facility] [Provider Group] - Follow up as needed
[2017-11-29 03:28] LABS: ABSOLUTE BASOPHILS # (AUTO) 0.1 10^3/uL (0.0-0.2); ABSOLUTE EOSINOPHILS # (AUTO) 0.2 10^3/uL (0.0-0.6); ABSOLUTE LYMPHOCYTES (AUTO) 3.7 10^3/uL (0.5-4.7); ABSOLUTE MONOCYTES (AUTO) 0.5 10^3/uL (0.1-1.4); ABSOLUTE NEUT (AUTO) 3.5 10^3/uL (1.7-8.2); EOSINOPHILS % (AUTO) 2.8 % (0-6); HEMATOCRIT 38.8 % (36.0-47.0); LYMPHOCYTES % (AUTO) 45.9 % (13-45); MEAN CORPUSCULAR HEMOGLOBIN 27.9 pg (27.0-33.4); MEAN CORPUSCULAR HGB CONC 33.4 g/dL (32.0-36.0); MEAN CORPUSCULAR VOLUME 84 fl (80-97); MONOCYTES % (AUTO) 6.6 % (3-13); PLATELET COUNT 268 10^3/uL (150-450); RED BLOOD COUNT 4.64 10^6/uL (3.72-5.28); RED CELL DISTRIBUTION WIDTH 15.8 % (11.5-14.0); SEGMENTED NEUTROPHILS % (AUTO) 43.7 % (42-78); TOTAL CELLS COUNTED % (AUTO) 100 %; WHITE BLOOD COUNT 8.1 10^3/uL (4.0-10.5)
[2017-11-29 03:33] LABS: ALANINE AMINOTRANSFERASE 30 U/L (9-52); ALBUMIN 4.1 g/dL (3.5-5.0); ALKALINE PHOSPHATASE 62 U/L (38-126); ANION GAP 13 (5-19); ASPARTATE AMINO TRANSFERASE 27 U/L (14-36); BILIRUBIN,DIRECT 0.3 mg/dL (0.0-0.4); BILIRUBIN,TOTAL 0.6 mg/dL (0.2-1.3); BLOOD UREA NITROGEN 13 mg/dL (7-20); CALCIUM 9.4 mg/dL (8.4-10.2); CARBON DIOXIDE 29 mmol/L (22-30); CHLORIDE 102 mmol/L (98-107); GLUCOSE 63 mg/dL (75-110); POTASSIUM 4.1 mmol/L (3.6-5.0); SODIUM 144.3 mmol/L (137-145); TOTAL PROTEIN 7.3 g/dL (6.3-8.2)
[2017-11-29 03:34] LABS: RBCS (WET MOUNT) 4+ RBCS SEEN; T.VAGINALIS (WET MOUNT) TRICHOMONAS SEEN; WBCS (WET MOUNT) 1+ WBCS SEEN; YEAST (WET MOUNT) NO YEAST SEEN
[2017-11-29] MEDS ORDERED: FENTANYL CITRATE INJ/PF 100 MCG/2 ML AMPUL IV ONE (04:00)
[2017-11-29] MEDS ORDERED: KETOROLAC TROMETHAMINE INJ/PF 30 MG/1 ML SDV IV ONE (04:00)
[2017-11-29 05:01] LABS: CHLAM PCR NOT DETECTED (NOT DETECT); GON PCR NOT DETECTED (NOT DETECT)
[2017-11-29] MEDS ORDERED: METRONIDAZOLE 500 MG TABLET PO ONE (05:57)
--- NOTE | 2017-11-29 06:19 | RADIOLOGY REPORT (SQ) ---
EXAM DESCRIPTION: US PELVIS COMPLETED DATE/TME: 11/29/2017 04:00 CLINICAL HISTORY: 37 years Female, heavy vaginal bleeding and cramping Comparison: 2.17.18 Technique: Transvaginal. LIMITATIONS: Urinary bladder, patient cooperation. FINDINGS: 9-cm uterus with likely related anterior scar, 0.6-cm endometrial stripe thickness, 2.6-cm cervical length, nabothian cysts, 2.5-cm right ovary appear normal in size, shape, echotexture, and vascularity. Left ovary not visualized. No free fluid. IMPRESSION: No acute findings..
[2017-11-29 08:15] VITALS: BP 97/58
== END 2017-11-29 08:25 | disposition home or self-care (01) ==
LOC: ER 00:29
DX: R10.2 Pelvic and perineal pain (principal); N93.9 Abnormal uterine and vaginal bleeding, unspecified; R30.0 Dysuria; R42 Dizziness and giddiness
CPT/HCPCS: 99284; 96361; 96374; 96375; 86900; 86901; 36415; 87210; 84702; 85025; 80053; 87491; 87591; 76830; 93976; J3010; J1885; J7030

== ENCOUNTER 2018-07-18 17:38 | Emergency (ER) | payer SELFPAY ==
[2018-07-18 17:47] VITALS: BP 165/88
--- NOTE | 2018-07-18 19:10 | ER Document Report ---
ED Oral Problem - General Chief Complaint: Toothache Stated Complaint: TOOTHACHE Time Seen by Provider: 07/18/18 18:44 TRAVEL OUTSIDE OF THE [place] IN LAST 30 DAYS: No - Related Data Allergies/Adverse Reactions: amoxicillin [Amoxicillin] Allergy (Verified 07/18/18 17:39) Penicillins Allergy (Verified 07/18/18 17:39) Past Medical History - Social History Smoking Status: Current Every Day Smoker Family History: Malignancy, Reviewed & Not Pertinent, Thyroid Disfunction Patient has suicidal ideation: No Patient has homicidal ideation: No Neurological Medical History: Reports: Hx Migraine Renal/ Medical History: Denies: Hx Peritoneal Dialysis Musculoskeletal Medical History: Reports Hx Arthritis - rheumatoid arthritis - new dx, Reports Hx Musculoskeletal Deformity, Reports Hx Musculoskeletal Trauma Skin Medical History: Reports Hx Cellulitis, Reports Hx MRSA Past Surgical History: Reports: Hx Section - x3, Hx Gynecologic Surgery - ectopic repair x's3, Hx Tonsillectomy, Other - Facial surgery for MRSA 2 - Immunizations Hx Diphtheria, Pertussis, Tetanus Vaccination: Yes - 2005 Physical Exam - Vital signs Vitals: Temp Pulse Resp BP Pulse Ox 98.1 F 103 H 18 165/88 H 97 07/18/18 17:46 07/18/18 17:46 07/18/18 17:46 07/18/18 17:46 07/18/18 17:46 Course - Re-evaluation Re-evalutation: 07/18/18 19:09 Went into room several times to see and she had walked out to get her wallet from a car and she has not been back to the room yet. We will continue to wait a little while. Staff went out to look in the waiting room and in the front of the hospital and have not seen the patient since she walked out about 15 minutes ago. - Vital Signs Vital signs: Temp Pulse Resp BP Pulse Ox 98.1 F 103 H 18 165/88 H 97 07/18/18 17:46 07/18/18 17:46 07/18/18 17:46 07/18/18 17:46 07/18/18 17:46 Discharge - Discharge Clinical Impression: Pain due to dental caries Disposition: ELOPED
== END 2018-07-18 19:19 | disposition left against medical advice (07) ==
LOC: ER 17:38
DX: K02.9 Dental caries, unspecified (principal); K08.89 Other specified disorders of teeth and supporting structures; F17.200 Nicotine dependence, unspecified, uncomplicated; Z88.0 Allergy status to penicillin; Z53.20 Procedure and treatment not carried out because of patient's decision for unspecified reasons
CPT/HCPCS: 99281

== ENCOUNTER 2018-07-18 20:26 | Emergency (ER) | payer SELFPAY ==
[2018-07-19] MEDS ORDERED: HYDROCODONE/ACETAMINOPHEN 5-325 MG TABLET PO ONE (00:36)
[2018-07-19] MEDS ORDERED: HYDROCODONE/ACETAMINOPHEN 5-325 MG (6 TAB/ER DISP) PO PRN (00:36)
[2018-07-19] MEDS ORDERED: CEPHALEXIN 500 MG CAPSULE PO ONE (00:37)
--- NOTE | 2018-07-19 00:40 | ER Document Report ---
ED General - General Chief Complaint: Toothache Stated Complaint: MOUTH PAIN Time Seen by Provider: 07/19/18 00:28 Mode of Arrival: Ambulatory Information source: Patient TRAVEL OUTSIDE OF THE [place] IN LAST 30 DAYS: No - HPI Patient complains to provider of: Right upper jaw pain Onset: Last week Onset/Duration: Gradual Quality of pain: Sharp Severity: Severe Pain Level: 5 Associated symptoms: None. denies: Chills, Fever Exacerbated by: Denies Relieved by: Denies Similar symptoms previously: No Recently seen / treated by doctor: No Notes: 37-year-old female coming in today with right upper jaw pain. Broken off posterior molar. Increased pain and swelling for the past couple of days. No fevers or chills. No difficulty swallowing or breathing. No chronic medical problems. Patient does smoke cigarettes. - Related Data Allergies/Adverse Reactions: amoxicillin [Amoxicillin] Allergy (Verified 07/18/18 17:39) Penicillins Allergy (Verified 07/18/18 17:39) Past Medical History - General Information source: Patient - Social History Smoking Status: Current Every Day Smoker Family History: Malignancy, Reviewed & Not Pertinent, Thyroid Disfunction Patient has suicidal ideation: No Patient has homicidal ideation: No Neurological Medical History: Reports: Hx Migraine Renal/ Medical History: Denies: Hx Peritoneal Dialysis Musculoskeletal Medical History: Reports Hx Arthritis - rheumatoid arthritis - new dx, Reports Hx Musculoskeletal Deformity, Reports Hx Musculoskeletal Trauma Skin Medical History: Reports Hx Cellulitis, Reports Hx MRSA Past Surgical History: Reports: Hx Section - x3, Hx Gynecologic Surgery - ectopic repair x's3, Hx Tonsillectomy, Other - Facial surgery for MRSA 2 - Immunizations Hx Diphtheria, Pertussis, Tetanus Vaccination: Yes - 2005 Review of Systems - Review of Systems Notes: Constitutional: No fevers. No chills. EENT: No eye redness. No eye pain. Positive for right ear pain. No sore throat. Positive for right upper jaw pain. Cardiovascular: No chest pain. No palpitations. Respiratory: No cough. No shortness of breath. No respiratory distress. Gastrointestinal: No abdominal pain. No nausea, vomiting, or diarrhea. Genitourinary: Atraumatic. No lesions. No pain. No discharge. Musculoskeletal: Atraumatic. No swelling. No deformities. Skin: No rash or lesions. Lymphatic: No swollen lymph nodes. Neurologic: No headache. No syncope. Psychiatric: No suicidal or homicidal ideation. Physical Exam - Vital signs Vitals: Temp Pulse Resp BP Pulse Ox 98.3 F 72 16 133/79 H 98 07/18/18 20:49 07/18/18 20:49 07/18/18 20:49 07/18/18 20:49 07/18/18 20:49 - Notes Notes: General: Well-developed, well-nourished. In no acute distress. Non-toxic appearing. Cardiac: Well-perfused. Regular rate and rhythm. No murmurs, rubs, or gallops. Pulmonary: No respiratory distress. No cyanosis. Bilateral lung fiels are clear to auscultation. Abdominal: Non-distended. Non-rigid. Bowels sounds are present in all four quadrants. No guarding or rebound. HEENT: Head is atraumatic. Conjunctivae not reddened. No tearing. PERRL. EOMI. Orbits atraumatic. No periorbital swelling or erythema. Oropharynx is without erythema, swelling, or exudates. Patient has a partial denture in the right upper jaw. The posterior most molar is minimally visualized. There is significant decay and obviously some fracture of part of the tooth in the past. No local swelling or abscess. No trismus or drooling. No submandibular or luna blingual swelling. No dysphonia dyspnea or dysphagia Neck: Supple. No adenopathy. No meningismus. Dermatologic: Warm with good turgor. No rash. Atraumatic. Chest: Atraumatic. No chest wall tenderness to palpation. Musculoskeletal: Moves all extremities well. No range of motion deficits. no muscular or joint tenderness. No paraspinal muscle tenderness. no midline spinal tenderness or step-off. Genitourinary: Examination deferred Neurologic: No gross neurologic deficits. Psychiatric: Normal mood. Course - Vital Signs Vital signs: Temp Pulse Resp BP Pulse Ox 98.3 F 72 16 133/79 H 98 07/18/18 20:49 07/18/18 20:49 07/18/18 20:49 07/18/18 20:49 07/18/18 20:49 Discharge - Discharge Clinical Impression: Dental abscess Condition: Good Disposition: HOME, SELF-CARE Instructions: Cephalexin ([facility]), Oral Narcotic Medication ([facility]), Toothache ([facility]) Additional Instructions: Follow-up as soon as possible with your dentist Prescriptions: Cephalexin Monohydrate [Keflex 500 mg Capsule] 500 mg PO Q6H 5 Days #40 capsule Referrals: [facility] [Provider Group] - Follow up as needed
[2018-07-19 00:51] VITALS: BP 116/62
[2018-07-19] MEDS ORDERED: LIDOCAINE 2% VISCOUS SOLN 20 ML UDCUP PO ONE (00:55)
== END 2018-07-19 01:02 | disposition home or self-care (01) ==
LOC: ER 20:26
DX: K04.7 Periapical abscess without sinus (principal); K02.9 Dental caries, unspecified; H92.01 Otalgia, right ear; R68.84 Jaw pain; F17.210 Nicotine dependence, cigarettes, uncomplicated; Z88.0 Allergy status to penicillin
CPT/HCPCS: 99282; J3490

== ENCOUNTER 2018-07-24 12:29 | Emergency (ER) | payer SELFPAY ==
[2018-07-24 12:41] VITALS: BP 129/84
--- NOTE | 2018-07-24 12:58 | ER Document Report ---
Addendum entered and electronically signed by TREMAYNE MAS NP 07/24/18 12:59: Course - Re-evaluation Re-evalutation: 07/24/18 12:59 I have greeted and performed a rapid initial assessment of this patient. A comprehensive ED assessment and evaluation of the patient, analysis of test results and completion of the medical decision making process will be conducted by additional ED providers. - Vital Signs Vital signs: Temp Pulse Resp BP Pulse Ox 98.7 F 78 18 129/84 H 99 07/24/18 12:40 07/24/18 12:40 07/24/18 12:40 07/24/18 12:40 07/24/18 12:40 Original Note: ED Medical Screen (RME) - General Chief Complaint: Skin Problem Stated Complaint: ABSCESS Time Seen by Provider: 07/24/18 12:52 Mode of Arrival: Ambulatory Information source: Patient Notes: Patient presents to the emergency department with right forearm abscess started a few days ago. Patient has multiple sores to her arm she reports that are insect bites from cleaning out side. Denies other symptoms such as fever vomiting diarrhea. Denies alcohol or drug use. TRAVEL OUTSIDE OF THE [place]. IN LAST 30 DAYS: No - Related Data Allergies/Adverse Reactions: amoxicillin [Amoxicillin] Allergy (Verified 07/24/18 12:30) Penicillins Allergy (Verified 07/24/18 12:30) Sulfa (Sulfonamide Antibiotics) Allergy (Verified 07/24/18 12:52) Past Medical History Pulmonary Medical History: Reports: Hx Asthma - seasonal Neurological Medical History: Reports: Hx Migraine Renal/ Medical History: Denies: Hx Peritoneal Dialysis Musculoskeltal Medical History: Reports Hx Arthritis - rheumatoid arthritis - new dx, Reports Hx Musculoskeletal Deformity, Reports Hx Musculoskeletal Trauma Skin Medical History: Reports Hx Cellulitis, Reports Hx MRSA Past Surgical History: Reports: Hx Section - x3, Hx Gynecologic Surgery - ectopic repair x's3, Hx Tonsillectomy, Other - Facial surgery for MRSA 2 - Immunizations Hx Diphtheria, Pertussis, Tetanus Vaccination: Yes - 2005 Physical Exam - Vital signs Vitals: Temp Pulse Resp BP Pulse Ox 98.7 F 78 18 129/84 H 99 07/24/18 12:40 07/24/18 12:40 07/24/18 12:40 07/24/18 12:40 07/24/18 12:40 Course - Vital Signs Vital signs: Temp Pulse Resp BP Pulse Ox 98.7 F 78 18 129/84 H 99 07/24/18 12:40 07/24/18 12:40 07/24/18 12:40 07/24/18 12:40 07/24/18 12:40
== END 2018-07-24 15:42 | disposition left against medical advice (07) ==
LOC: ER 12:29
DX: L02.413 Cutaneous abscess of right upper limb (principal); Z88.0 Allergy status to penicillin; Z88.2 Allergy status to sulfonamides; Z86.14 Personal history of Methicillin resistant Staphylococcus aureus infection
CPT/HCPCS: 99281

== ENCOUNTER 2018-07-24 22:15 | Emergency (ER) | payer SELFPAY ==
[2018-07-25] MEDS ORDERED: LIDOCAINE 1% INJ-PF (10 MG/ML) 30 ML SDV INJ ONE (00:16)
[2018-07-25] MEDS ORDERED: HYDROCODONE/ACETAMINOPHEN 10-325 MG TABLET PO ONE (00:16)
[2018-07-25] MEDS ORDERED: DOXYCYCLINE HYCLATE 100 MG TABLET PO ONE (00:54)
[2018-07-25] MEDS ORDERED: CLINDAMYCIN HCL 150 MG CAPSULE PO ONE ×2 (00:59)
--- NOTE | 2018-07-25 00:59 | ER Document Report ---
HPI - HPI Patient complains to provider of: Abscess Time Seen by Provider: 07/25/18 00:09 Pain Level: 5 Context: Patient is a 37-year-old female presents to the emergency department with redness and swelling noted forearm. Patient states she noted the swelling had increased the last 24 hours. States she attempted to "pop" it yesterday without success. Patient states she does have a history of abscesses on her face and on her leg. States she had to be admitted in the hospital for treatments. Patient's denying any use of IV drugs. Allergies: Penicillin, sulfa - REPRODUCTIVE Reproductive: DENIES: : - MUSCULOSKELETAL Musculoskeletal: REPORTS: Extremity pain Past Medical History - General Information source: Patient - Social History Smoking Status: Unknown if Ever Smoked Family History: Malignancy, Reviewed & Not Pertinent, Thyroid Disfunction Patient has suicidal ideation: No Patient has homicidal ideation: No Pulmonary Medical History: Reports: Hx Asthma - seasonal Neurological Medical History: Reports: Hx Migraine Renal/ Medical History: Denies: Hx Peritoneal Dialysis Musculoskeletal Medical History: Reports Hx Arthritis - rheumatoid arthritis - new dx, Reports Hx Musculoskeletal Deformity, Reports Hx Musculoskeletal Trauma Skin Medical History: Reports Hx Cellulitis, Reports Hx MRSA Past Surgical History: Reports: Hx Section - x3, Hx Gynecologic Surgery - ectopic repair x's3, Hx Tonsillectomy, Other - Facial surgery for MRSA 2 - Immunizations Hx Diphtheria, Pertussis, Tetanus Vaccination: Yes - 2005 [facility] Provider Document - CONSTITUTIONAL Agree With Documented VS: Yes Notes: GENERAL: Alert, interacts well. No acute distress. HEAD: Normocephalic, atraumatic. EYES: Pupils equal, round, and reactive to light. Extraocular movements intact. ENT: Oral mucosa moist, tongue midline. NECK: Full range of motion. Supple. Trachea midline. LUNGS: Clear to auscultation bilaterally, no wheezes, rales, or rhonchi. No respiratory distress. HEART: Regular rate and rhythm. No murmur ABDOMEN: Soft, non-tender. Non-distended. Bowel sounds present in all 4 enzo drants. EXTREMITIES: Moves all 4 extremities spontaneously. normal radial and dorsalis pedis pulses bilaterally. No cyanosis. BACK: no cervical, thoracic, lumbar midline tenderness. No saddle anesthesia, normal distal neurovascular exam. NEUROLOGICAL: Alert and oriented x3. Normal speech. cranial nerves II through XII grossly intact PSYCH: Normal affect, normal mood. SKIN: Warm, dry, normal turgor. 5 cm x 5 cm area of fluctuance noted right forearm just proximal to the AC, surrounding cellulitic tissue noted to be 8 cm x 8 cm. Patient has full range of motion of the right elbow - INFECTION CONTROL TRAVEL OUTSIDE OF THE [place] IN LAST 30 DAYS: No Course - Re-evaluation Re-evalutation: 07/25/18 00:56 I&D performed, patient tolerated well, discharged home on antibiotics with close follow-up. - Vital Signs Vital signs: Temp Pulse Resp BP Pulse Ox 97.8 F 85 20 113/85 98 07/24/18 22:31 07/24/18 22:31 07/24/18 22:31 07/24/18 22:31 07/24/18 22:31 Procedures - Incision and Drainage Right forearm Type: Simple Anesthetic type: 1% Lidocaine mL's of anesthetic: 5 Blade size: 11 I&D procedure: Betadine prep applied, Shurclens applied, Sterile dressing applied Incision Method: Incision made by scalpel Amount/type of drainage: Copious purulent Adult Front & Back picture: 1 - Abscess Discharge - Discharge Clinical Impression: Abscess Cellulitis Qualifiers: Site of cellulitis: extremity Site of cellulitis of extremity: upper extremity Laterality: right Qualified Code(s): L03.113 - Cellulitis of right upper limb Condition: Stable Disposition: HOME, SELF-CARE Instructions: Abscess ([facility]), Oral Narcotic Medication ([facility]), Post Incision and Drainage Additional Instructions: You have been seen and treated in the emergency department for an abscess of your right forearm. Please make sure you take antibiotics as prescribed. Please also follow-up with your primary care provider or return to the emergency room for a wound check within the next 48 hours. Please also immediately return to the emergency room should the redness and swelling not get better with 48 hours of antibiotic use. Prescriptions: Clindamycin HCl [Cleocin 150 mg Capsule] 450 mg PO Q8 7 Days capsule Forms: Return to Work
[2018-07-25] MEDS ORDERED: HYDROCODONE/ACETAMINOPHEN 5-325 MG (6 TAB/ER DISP) PO PRN (01:02)
[2018-07-25 01:26] VITALS: BP 116/78
== END 2018-07-25 01:26 | disposition home or self-care (01) ==
LOC: ER 22:15
DX: L02.413 Cutaneous abscess of right upper limb (principal); Z86.14 Personal history of Methicillin resistant Staphylococcus aureus infection
CPT/HCPCS: 99283; 10060; J3490

== ENCOUNTER 2018-08-14 22:02 | Emergency (ER) | payer SELFPAY ==
[2018-08-14] MEDS ORDERED: NALOXONE HCL INJ 2 MG/2 ML DISP.SYRIN IV ONE ×2 (22:38→23:26)
--- NOTE | 2018-08-14 22:42 | ER Document Report ---
ED General - General Chief Complaint: Overdose Stated Complaint: POSSIBLE OVERDOSE Time Seen by Provider: 08/14/18 22:17 Mode of Arrival: Medic Information source: Law Enforcement, Emergency Med Personnel, [facility] Records Cannot obtain history due to: Uncooperative, Altered mental status Notes: 38-year-old female with migraine headaches, admitted heroin addiction presents via EMS after being found in the [facility] bathroom with a tourniquet around her arm in the position. Police who responded to the patient states that they found her laying on the bathroom floor. It appeared that maybe she had fallen from the toilet and struck her face. 4 mg of Narcan was administered intranasally and upon EMS arrival they state that the patient became awake and alert and tried to flee the scene. Patient has been combative, spitting. She denies suicidal attempt and states that she was just trying to get high. EMS reports that patient shot up fentanyl today. She is a daily heroin user. TRAVEL OUTSIDE OF THE [place] IN LAST 30 DAYS: No - HPI Onset: Just prior to arrival Onset/Duration: Sudden - Related Data Allergies/Adverse Reactions: amoxicillin [Amoxicillin] Allergy (Verified 07/24/18 12:30) Penicillins Allergy (Verified 07/24/18 12:30) Sulfa (Sulfonamide Antibiotics) Allergy (Verified 07/24/18 12:52) Past Medical History - General Information source: Law Enforcement, Emergency Med Personnel, [facility] Records Cannot obtain history due to: Uncooperative, Altered mental status - Social History Smoking Status: Current Every Day Smoker Cigarette use (# per day): Yes Frequency of alcohol use: Occasional Drug Abuse: Heroin, Other Family History: Malignancy, Reviewed & Not Pertinent, Thyroid Disfunction Patient has suicidal ideation: No Patient has homicidal ideation: No Pulmonary Medical History: Reports: Hx Asthma - seasonal Neurological Medical History: Reports: Hx Migraine Renal/ Medical History: Denies: Hx Peritoneal Dialysis Musculoskeletal Medical History: Reports Hx Arthritis - rheumatoid arthritis - new dx, Reports Hx Musculoskeletal Deformity, Reports Hx Musculoskeletal Trauma Skin Medical History: Reports Hx Cellulitis, Reports Hx MRSA Past Surgical History: Reports: Hx Section - x3, Hx Gynecologic Surgery - ectopic repair x's3, Hx Tonsillectomy, Other - Facial surgery for MRSA 2 - Immunizations Hx Diphtheria, Pertussis, Tetanus Vaccination: Yes - 2005 Review of Systems - Review of Systems -: Yes ROS unobtainable due to patient's medical condition Physical Exam - Vital signs Vitals: Pulse Ox 88 L 08/14/18 22:14 - Notes Notes: PHYSICAL EXAMINATION: GENERAL: Uncooperative, agitated, spitting HEAD: Abrasion to the forehead and bridge of nose EYES: Pinpoint pupils, reactive to light, extraocular movements intact. ENT: Blood from the nares. Moist mucous membranes. NECK: Normal range of motion, supple without lymphadenopathy LUNGS: Breath sounds clear to auscultation bilaterally and equal. No wheezes rales or rhonchi. HEART: Regular rate and rhythm without murmurs ABDOMEN: Soft, nontender, nondistended abdomen. No guarding, no rebound. No masses appreciated. Female : deferred Musculoskeletal: Normal range of motion, no pitting or edema. No cyanosis. NEUROLOGICAL: GCS 13 PSYCH: Agitated, uncooperative denies suicidal ideation SKIN: Abrasion to the forehead, bridge of nose Course - Re-evaluation Re-evalutation: Laboratory 08/14/18 08/14/18 08/14/18 23:00 23:00 23:00 WBC 7.7 RBC 4.28 Hgb 12.2 Hct 35.8 L MCV 84 MCH 28.5 MCHC 34.0 RDW 15.3 H Plt Count 298 Seg Neutrophils % 62.8 Lymphocytes % 27.7 Monocytes % 6.5 Eosinophils % 1.9 Basophils % 1.1 Absolute Neutrophils 4.8 Absolute Lymphocytes 2.1 Absolute Monocytes 0.5 Absolute Eosinophils 0.1 Absolute Basophils 0.1 Sodium 138.2 Potassium 4.2 Chloride 101 Carbon Dioxide 28 Anion Gap 9 BUN 13 Creatinine 0.87 Est GFR ( Amer) > 60 Est GFR (Non-Af Amer) > 60 Glucose 85 Calcium 9.4 Total Bilirubin 0.6 Direct Bilirubin 0.2 Neonat Total Bilirubin Not Reportable Neonat Direct Bilirubin Not Reportable Neonat Indirect Bili Not Reportable AST 36 ALT 37 Alkaline Phosphatase 68 Total Protein 7.0 Albumin 3.8 Serum HCG, Qual NEGATIVE Salicylates < 1.0 L Acetaminophen < 10 L Serum Alcohol < [address] 08/14/18 22:36 IMPRESSION: Negative for acute facial bone fracture. Superficial soft tissue swelling along the right face and superficial to the right mandible. TECHNICAL DOCUMENTATION: Quality ID # 436: Final reports with documentation of one or more dose reduction techniques (e.g., Automated exposure control, adjustment of the mA and/or kV according to patient size, use of iterative reconstruction technique) copyright 2010 [employer]- All Rights Reserved Head CT 08/14/18 22:36 IMPRESSION: Negative exam TECHNICAL DOCUMENTATION: Quality ID # 436: Final reports with documentation of one or more dose reduction techniques (e.g., Automated exposure control, adjustment of the mA and/or kV according to patient size, use of iterative reconstruction technique) copyright 2010 [employer]- All Rights Reserved Temp Pulse Resp BP Pulse Ox 98.7 F 27 H 118/74 94 08/15/18 00:29 08/15/18 00:00 08/15/18 01:01 08/15/18 01:01 08/15/18 03:18 38-year-old female presented via EMS after being found in the bathroom stall at [facility] in a position with a tourniquet on her arm. Patient does admit to shooting fentanyl. She admits to daily heroin use. She has no interest in rehabilitation. Vitals signs reviewed upon arrival. Patient is somnolent but arouses with noxious stimuli. She did receive intranasal Narcan prior to arrival by law enforcement and they report a total of 4 mg. Patient did receive another 2 mg of Narcan during her ED course. Patient did respond to Narcan and became more alert, awake. She did have an episode of vomiting and was provided Zofran and IV fluids. 08/15/18 03:21 Boyfriend presented to the bedside after the patient's initial presentation. He states that he feels comfortable taking her home. Patient is alert, awake and able to ambulate. 08/15/18 03:23 Patient was evaluated and treated as appropriate for the patient's presenting symptoms and complaint, with consideration of any critical or life threatening conditions that may be associated with their obtained history and exam as noted above. All results were discussed with patient and her boyfriend who is at the bedside. Patient provided the opportunity to ask questions, and express concerns. Patient was educated on treatments based on their presumed diagnosis as noted above. At this time we will discharge the patient with return precautions and follow-up recommendations. Verbal discharge instructions given a the bedside. Medication warnings reviewed. Patient is in agreement with this plan and has verbalized understanding of return precautions. After careful consideration I feel that that patient can be safely discharged from the emergency department, they were advised to followup with a primary care physician in 2-3 days. Dictation on this chart was performed using voice recognition software and may result in unintended grammatical, spelling, syntax or errors. - Vital Signs Vital signs: Temp Pulse Resp BP Pulse Ox 98.7 F 27 H 118/74 94 08/15/18 00:29 08/15/18 00:00 08/15/18 01:01 08/15/18 01:01 - Laboratory Result Diagrams: 08/14/18 23:00 08/14/18 23:00 Laboratory results interpreted by me: 08/14/18 08/14/18 23:00 23:00 Hct 35.8 L RDW 15.3 H Salicylates < 1.0 L Acetaminophen < 10 L - Diagnostic Test Radiology reviewed: Image reviewed, Reports reviewed Discharge - Discharge Clinical Impression: Accidental fentanyl overdose Qualifiers: Encounter type: initial encounter Qualified Code(s): T40.4X1A - Poisoning by other synthetic narcotics, accidental (unintentional), initial encounter Facial abrasion Qualifiers: Encounter type: initial encounter Qualified Code(s): S00.81XA - Abrasion of other part of head, initial encounter Opiate dependence Qualifiers: Substance use status: with unspecified opioid-induced disorder Qualified Code(s): F11.29 - Opioid dependence with unspecified opioid-induced disorder Condition: Good Disposition: HOME, SELF-CARE Instructions: Overdose ([facility]) Additional Instructions: Tonight you overdosed on fentanyl. You likely would have had the police not administered Narcan. Continued use will likely lead to . Please return to the emergency department if you experience shortness of breath, fever, intractable vomiting or any other symptoms worrisome to you.
--- NOTE | 2018-08-14 23:09 | RADIOLOGY REPORT (SQ) ---
EXAM DESCRIPTION: CT HEAD WITHOUT IV CONTRAST COMPLETED DATE/TME: 08/14/2018 22:36 CLINICAL HISTORY: 38 years, Female, fall COMPARISON: None. TECHNIQUE: 198 Images stored on PACS. All CT scanners at this facility use dose modulation, iterative reconstruction, and/or weight based dosing when appropriate to reduce radiation dose to as low as reasonably achievable (ALARA). [facility]: Dose Right [facility]: CareDose [facility]: Dose Right [facility]: Teradose 4D [facility]: [email or web address] LIMITATIONS: None. FINDINGS: The globes are intact. The paranasal sinuses and mastoid air cells are unremarkable. No displaced or depressed skull fracture. No intra or extra-axial hemorrhage. CT is limited for evaluation of acute infarct. No CT evidence for large or territorial acute infarct. No mass. No midline shift IMPRESSION: Negative exam TECHNICAL DOCUMENTATION: Quality ID # 436: Final reports with documentation of one or more dose reduction techniques (e.g., Automated exposure control, adjustment of the mA and/or kV according to patient size, use of iterative reconstruction technique) copyright 2011 [employer]- All Rights Reserved
--- NOTE | 2018-08-14 23:13 | RADIOLOGY REPORT (SQ) ---
EXAM DESCRIPTION: CT MAXILLOFACIAL WITHOUT IV CONTRAST COMPLETED DATE/TME: 08/14/2018 22:36 CLINICAL HISTORY: 38 years, Female, fall COMPARISON: None. TECHNIQUE: 232 Images stored on PACS. All CT scanners at this facility use dose modulation, iterative reconstruction, and/or weight based dosing when appropriate to reduce radiation dose to as low as reasonably achievable (ALARA). [facility]: Dose Right [facility]: CareDose [facility]: Dose Right [facility]: Teradose 4D [facility]: [employer] LIMITATIONS: None. FINDINGS: The globes are intact. There is subcutaneous edema and inflammation along the right face and superficial to the right mandible. However, negative for acute facial bone fracture. The paranasal sinuses and mastoid air cells are well aerated. Minor mucosal thickening of the right maxillary sinus is noted. IMPRESSION: Negative for acute facial bone fracture. Superficial soft tissue swelling along the right face and superficial to the right mandible. TECHNICAL DOCUMENTATION: Quality ID # 436: Final reports with documentation of one or more dose reduction techniques (e.g., Automated exposure control, adjustment of the mA and/or kV according to patient size, use of iterative reconstruction technique) copyright 2011 [employer]- All Rights Reserved
[2018-08-14] MEDS ORDERED: NORMAL SALINE 500 ML with NALOXONE HCL 2 MG IV PRN ×2 (23:22)
[2018-08-14] MEDS ORDERED: ONDANSETRON HCL INJ/PF 4 MG/2 ML SDV IV ONE (23:23)
[2018-08-14] MEDS ORDERED: RINGERS SOLUTION,LACTATED 1,000 ML IV ONE (23:25)
[2018-08-14 23:27] LABS: ABSOLUTE BASOPHILS # (AUTO) 0.1 10^3/uL (0.0-0.2); ABSOLUTE EOSINOPHILS # (AUTO) 0.1 10^3/uL (0.0-0.6); ABSOLUTE LYMPHOCYTES (AUTO) 2.1 10^3/uL (0.5-4.7); ABSOLUTE MONOCYTES (AUTO) 0.5 10^3/uL (0.1-1.4); ABSOLUTE NEUT (AUTO) 4.8 10^3/uL (1.7-8.2); BASOPHILS % (AUTO) 1.1 % (0-2); EOSINOPHILS % (AUTO) 1.9 % (0-6); HEMATOCRIT 35.8 % (36.0-47.0); HEMOGLOBIN 12.2 g/dL (12.0-15.5); LYMPHOCYTES % (AUTO) 27.7 % (13-45); MEAN CORPUSCULAR HEMOGLOBIN 28.5 pg (27.0-33.4); MEAN CORPUSCULAR VOLUME 84 fl (80-97); MONOCYTES % (AUTO) 6.5 % (3-13); PLATELET COUNT 298 10^3/uL (150-450); RED BLOOD COUNT 4.28 10^6/uL (3.72-5.28); RED CELL DISTRIBUTION WIDTH 15.3 % (11.5-14.0); SEGMENTED NEUTROPHILS % (AUTO) 62.8 % (42-78); TOTAL CELLS COUNTED % (AUTO) 100 %; WHITE BLOOD COUNT 7.7 10^3/uL (4.0-10.5)
[2018-08-14 23:48] LABS: ALANINE AMINOTRANSFERASE 37 U/L (9-52); ALBUMIN 3.8 g/dL (3.5-5.0); ALKALINE PHOSPHATASE 68 U/L (38-126); ANION GAP 9 (5-19); ASPARTATE AMINO TRANSFERASE 36 U/L (14-36); BILIRUBIN,DIRECT 0.2 mg/dL (0.0-0.4); BILIRUBIN,TOTAL 0.6 mg/dL (0.2-1.3); BLOOD UREA NITROGEN 13 mg/dL (7-20); CALCIUM 9.4 mg/dL (8.4-10.2); CARBON DIOXIDE 28 mmol/L (22-30); CHLORIDE 101 mmol/L (98-107); GLUCOSE 85 mg/dL (75-110); POTASSIUM 4.2 mmol/L (3.6-5.0); SODIUM 138.2 mmol/L (137-145)
[2018-08-14 23:51] LABS: ACETAMINOPHEN < 10 ug/mL (10-30); ALCOHOL < 10 mg/dL (NONE DETECTED); SALICYLATE < 1.0 mg/dL (2.0-20.0)
[2018-08-15 01:39] VITALS: BP 118/74
--- NOTE | 2018-08-15 23:03 | EKG REPORT ---
SEVERITY:- NORMAL ECG - SINUS RHYTHM : Confirmed by: Simone Guaman 15-Aug-2018 23:03:11
== END 2018-08-15 03:59 | disposition home or self-care (01) ==
LOC: ER 22:02
DX: T40.4X1A Poisoning by other synthetic narcotics, accidental (unintentional), initial encounter (principal); Y92.511 Restaurant or cafe as the place of occurrence of the external cause; F11.29 Opioid dependence with unspecified opioid-induced disorder; S00.81XA Abrasion of other part of head, initial encounter; S00.31XA Abrasion of nose, initial encounter; X58.XXXA Exposure to other specified factors, initial encounter; F17.210 Nicotine dependence, cigarettes, uncomplicated; Z88.0 Allergy status to penicillin; Z88.2 Allergy status to sulfonamides
CPT/HCPCS: 93005; 99285; 96361; 96374; 96375; 36415; 80307 ×3; 84702; 84703; 85025; 80053; 70450; 70486; 93010; J2405; J2310; J7120